=== PATIENT | female | born 1995 | race Hispanic/Latino ===

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

== ENCOUNTER 2022-01-15 09:37 | Emergency (ER) | payer MEDICAID ==
[2022-01-15] MEDS ORDERED: Ibuprofen 800 MG TAB ONE (10:11)
== END 2022-01-15 11:06 | disposition home or self-care (01) ==
LOC: MADERS 09:37
DX: B34.9 Viral infection, unspecified (principal)
CPT/HCPCS: 87081; 87430; 87804; 99283